=== PATIENT | male | born 1965 | race African-American/Black ===

== ENCOUNTER 2017-04-03 12:12 | Emergency (ER) | payer OTHER ==
[~2017-04-03] VITALS: Ht 172.7 cm; Wt 99.8 kg
[2017-04-03 12:12] VITALS: BP 145/100
[2017-04-03] MEDS ORDERED: INSULANT SC (12:34)
[2017-04-03] MEDS ORDERED: KEFL500C7 PO (12:34)
[2017-04-03] MEDS ORDERED: OMEP40CA2 PO (12:34)
[2017-04-03] MEDS ORDERED: IBUP600T26 PO (12:34)
[2017-04-03] MEDS ORDERED: METF500T PO (12:34)
== END 2017-04-03 13:00 | disposition home or self-care (01) ==
LOC: M ED 12:50
DX: L03.011 Cellulitis of right finger (principal); E11.9 Type 2 diabetes mellitus without complications; Z79.4 Long term (current) use of insulin; Z79.84 Long term (current) use of oral hypoglycemic drugs; Z79.899 Other long term (current) drug therapy

== ENCOUNTER 2017-10-15 09:59 | Emergency (ER) | payer OTHER ==
[~2017-10-15 09:59] MED LIST: IBUP-1022 PO; INSULANT SC; KEFL500C17 PO; METF500T13 PO; OMEP40CA2 PO
[2017-10-15] MEDS ORDERED: CLAR1TAB2 PO (10:10)
[2017-10-15] MEDS ORDERED: LIDOCAINE 2% MDV 20 ML VIAL SC ONE (10:45)
[2017-10-15] MEDS ORDERED: TYLE325T5 PO (11:11)
[2017-10-15] MEDS ORDERED: BACT800T5 PO (11:11)
[2017-10-15 11:20] VITALS: BP 134/92
== END 2017-10-15 11:24 | disposition home or self-care (01) ==
LOC: M ED 09:59
DX: L02.512 Cutaneous abscess of left hand (principal); E11.9 Type 2 diabetes mellitus without complications; I10 Essential (primary) hypertension; Z79.4 Long term (current) use of insulin; Z79.899 Other long term (current) drug therapy